=== PATIENT | male | born 1995 | race African-American/Black ===

== ENCOUNTER 2018-05-05 22:27 | Emergency (ER) | payer OTHER ==
[2018-05-06] MEDS ORDERED: PREDNISONE 20 MG TABLET PO ONE (00:50)
--- NOTE | 2018-05-06 00:58 | ER Document Report ---
ED General - General Chief Complaint: Skin Problem Stated Complaint: POSSIBLE RASH Time Seen by Provider: 05/06/18 00:35 Notes: 23-year-old male with history of psoriasis since 2014 presents to the emergency department for psoriasis outbreak. He states that he developed it while in the [place] in the and it had been controlled on Humira but he had not take his medications sometime and had a severe outbreak all over his body including his scalp. He complains of itching and crusting lesions, not weeping. He denies fever or any other systemic illness. He denies any underlying secondary infection on any of the lesions. TRAVEL OUTSIDE OF THE [place] IN LAST 30 DAYS: No Past Medical History - General Information source: Patient - Social History Smoking Status: Never Smoker Frequency of alcohol use: None Drug Abuse: None Family History: Reviewed & Not Pertinent Patient has suicidal ideation: No Patient has homicidal ideation: No Renal/ Medical History: Denies: Hx Peritoneal Dialysis Review of Systems - Review of Systems EENT: No symptoms reported Cardiovascular: No symptoms reported Respiratory: No symptoms reported Gastrointestinal: No symptoms reported Genitourinary: No symptoms reported Male Genitourinary: No symptoms reported Musculoskeletal: No symptoms reported Skin: See HPI Hematologic/Lymphatic: No symptoms reported Neurological/Psychological: No symptoms reported Physical Exam - Vital signs Vitals: Temp Pulse Resp BP Pulse Ox 98.5 F 62 12 129/75 H 97 05/05/18 22:27 05/05/18 22:27 05/05/18 22:27 05/05/18 22:27 05/05/18 22:27 - Notes Notes: Reviewed vital signs and nursing note as charted by RN. CONSTITUTIONAL: Well-appearing, well-nourished, acting appropriately for age HEAD: Normocephalic, atraumatic, no swelling EYES: PERRL, Conjunctivae clear, no drainage, EOMI, no scleral icterus ENT: External ears without lesions, External auditory canal is patent, Tairway patent, mucous membranes pink and moist EXT: Normal ROM in all joints, non-tender to palpation, no effusions, no edema SKIN: Normal color for age and race, warm, dry, good turgor, systemic psoriatic plaques crusting, no weeping, no evidence of underlying infection. NEURO: No facial asymmetry, moves all extremities equally, motor and sensory function intact Course - Re-evaluation Re-evalutation: 05/06/18 01:01 23-year-old male with psoriasis who ran out of his medications and has a psoriasis outbreak. There are systemic Psoriatec lesions over his whole body from head to toe that are dry and crusting. They are not weeping and there is no evidence of secondary infection. Patient states he was on Humira but ran out after being in the [place]. Plan is to give him 1 dose of prednisone now and a prednisone taper outpatient prescription with instructions to follow-up with dermatology. I explained to patient that this is merely a Band-Aid approach and it will require dermatology involvement to help manage his psoriasis in the emergency department is not equipped to manage the psoriasis. Patient agreed and understood. - Vital Signs Vital signs: Temp Pulse Resp BP Pulse Ox 98.5 F 62 12 129/75 H 97 05/05/18 22:27 05/05/18 22:27 05/05/18 22:27 05/05/18 22:27 05/05/18 22:27 Discharge - Discharge Clinical Impression: Psoriasis Condition: Stable Disposition: HOME, SELF-CARE Instructions: Psoriasis ([facility]) Additional Instructions: Psoriasis You have psoriasis. This is a common disease, but the cause is unknown. Psoriasis often runs in families. The skin blemishes are usually red with a thick, silvery scale. It is most commonly seen over the knees, elbows, and scalp. The nails may become thickened or pitted. Psoriasis is treated with cortisone cream. You can wrap the area with plastic wrap overnight to increase the effectiveness of the cream. Tar preparations may be used on non-hairy areas. Medicated shampoos are often prescribed. Management by a math interventionist is advised. Prescriptions: Prednisone [Deltasone 20 mg Tablet] 20 mg PO DAILY 21 Days #42 tablet Referrals: YUMI LIND MD [ACTIVE PROVISIONAL STAFF] - Follow up as needed
[2018-05-06 01:10] VITALS: BP 137/80
== END 2018-05-06 01:11 | disposition home or self-care (01) ==
LOC: ER 22:27
DX: L40.9 Psoriasis, unspecified (principal); Z79.899 Other long term (current) drug therapy
CPT/HCPCS: 99283; J7512

== ENCOUNTER 2018-06-02 17:59 | Emergency (ER) | payer OTHER ==
[2018-06-02 18:24] VITALS: BP 113/61
--- NOTE | 2018-06-02 19:22 | ER Document Report ---
ED Skin Rash/Insect Bite/Abscs - General Chief Complaint: Rash Stated Complaint: RASH Time Seen by Provider: 06/02/18 19:10 Primary Care Provider: YUMI LIND MD [ACTIVE PROVISIONAL STAFF] - Follow up as needed Mode of Arrival: Ambulatory Information source: Patient Notes: 23-year-old male presented to ED for complaint of increase in pain and itching to his psoriasis to both arms both legs abdomen back and chest. He states he is usually on Humira but is out of the medication is in process of getting an appointment with the dermatology. He states he went to his primary care doctor they told him it should not be more than a week or so before he gets gets his appointment. He has been seen in the past for the psoriasis and stated that he got steroids which helped him tremendously. He states that the pain is so bad now he cannot sleep from the psoriasis. Patient is alert oriented respirations regular and speaking in full sentences walks with a even steady gait. TRAVEL OUTSIDE OF THE [place] IN LAST 30 DAYS: No - HPI Patient complains to provider of: Skin rash/lesion Onset: Other - Chronic worse for the last several days Onset/Duration: Intermittent Quality of pain: Burning - Itching burning Severity: Moderate Pain Level: 3 Skin Character: Erythema, Patchy, Other - Plaque psoriasis generalized body Quality of rash: Itchy, Painful Exacerbated by: Other - Warmth stress Relieved by: Denies Similar symptoms previously: Yes Recently seen / treated by doctor: Yes - Related Data Allergies/Adverse Reactions: No Known Allergies Allergy (Verified 06/02/18 18:13) Past Medical History - General Information source: Patient - Social History Smoking Status: Never Smoker Frequency of alcohol use: None Drug Abuse: None Family History: Reviewed & Not Pertinent Patient has suicidal ideation: No Patient has homicidal ideation: No - Past Medical History Cardiac Medical History: Reports: None Pulmonary Medical History: Reports: None EENT Medical History: Reports: None Neurological Medical History: Reports: None Endocrine Medical History: Reports: None Renal/ Medical History: Reports: None Malignancy Medical History: Reports None GI Medical History: Reports: None Musculoskeletal Medical History: Reports None Skin Medical History: Reports Hx Psoriasis Psychiatric Medical History: Reports: None Traumatic Medical History: Reports: None Infectious Medical History: Reports: None Surgical Hx: Negative Past Surgical History: Reports: None - Immunizations Immunizations up to date: Yes Review of Systems - Review of Systems Constitutional: No symptoms reported EENT: No symptoms reported Cardiovascular: No symptoms reported Respiratory: No symptoms reported Gastrointestinal: No symptoms reported Genitourinary: No symptoms reported Male Genitourinary: No symptoms reported Musculoskeletal: No symptoms reported Skin: Rash - psoriasis to arms legs abdomen back chest neck states the burning and itching is keeping him awake. 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 He states he was been on Humira in the past that h elped but is out of it Hematologic/Lymphatic: No symptoms reported Neurological/Psychological: No symptoms reported Physical Exam - Vital signs Vitals: Temp Pulse Resp BP Pulse Ox 98.8 F 70 18 113/61 99 06/02/18 18:22 06/02/18 18:22 06/02/18 18:22 06/02/18 18:22 06/02/18 18:22 Interpretation: Normal - General General appearance: Appears well, Alert - HEENT Head: Normocephalic, Atraumatic Eyes: Normal Pupils: PERRL - Respiratory Respiratory status: No respiratory distress Chest status: Nontender Breath sounds: Normal Chest palpation: Normal - Cardiovascular Rhythm: Regular Heart sounds: Normal auscultation Murmur: No - Abdominal Inspection: Normal Distension: No distension Bowel sounds: Normal Tenderness: Nontender Organomegaly: No organomegaly - Back Back: Normal, Nontender - Extremities General upper extremity: Normal inspection, Nontender, Normal color, Normal ROM, Normal temperature General lower extremity: Normal inspection, Nontender, Normal color, Normal ROM, Normal temperature, Normal weight bearing. No: Deysi's sign - Neurological Neuro grossly intact: Yes Cognition: Normal Orientation: AAOx4 Fannie Coma Scale Eye Opening: Spontaneous [place] Coma Scale Verbal: Oriented [place]annie Coma Scale Motor: Obeys Commands [place] Coma Scale Total: 15 Speech: Normal Motor strength normal: LUE, RUE, LLE, RLE Sensory: Normal - Psychological Associated symptoms: Normal affect, Normal mood - Skin Skin Temperature: Warm Skin Moisture: Dry Skin Color: Normal Location of irregularity: Neck, Abdomen, Chest, Back, Extremities Character of irregularity: Patchy, Erythematous Irregularity with: Tenderness, Scaling, Crusting Course - Re-evaluation Re-evalutation: 06/03/18 01:56 Patient was treated with prednisone and then prescription for prednisone. Patient was instructed that he cannot continue to use steroids for his psoriasis or it will weaken his bone and increase other problems. Patient verbalized understanding states he has a referral in for dermatology to get back on his Humira. He states she has not had the medicine in some time and that is why the outbreak is so bad this time. - Vital Signs Vital signs: Temp Pulse Resp BP Pulse Ox 98.8 F 70 18 113/61 99 06/02/18 18:22 06/02/18 18:22 06/02/18 18:22 06/02/18 18:22 06/02/18 18:22 Discharge - Discharge Clinical Impression: Psoriasis Condition: Stable Disposition: HOME, SELF-CARE Additional Instructions: Psoriasis You have psoriasis. This is a common disease, but the cause is unknown. Psoriasis often runs in families. The skin blemishes are usually red with a thick, silvery scale. It is most commonly seen over the knees, elbows, and scalp. The nails may become thickened or pitted. Psoriasis is treated with cortisone cream. You can wrap the area with plastic wrap overnight to increase the effectiveness of the cream. Tar preparations may be used on non-hairy areas. Medicated shampoos are often prescribed. Management by a master certified rv technician is advised. Trying not to get overheated as this increases the symptoms. Hot showers can also make the psoriasis more itchy. Try Eucerin cream mixed with vitamin A E. By a tub of Eucerin cream at the [place] by a bottle of vitamin E E oil take a tongue blade or a knife and start the vitamin E oil into the Eucerin cream very well and then applied to the affected area this often helps with the itching and discomfort STEROID MEDICATION: You have been given a medicine of the cortisone/steroid class. This medication is used to control inflammation or allergy. It is usually only given for a short period of time, until the acute process subsides. There are usually no side effects from short-term use of cortisone-like medications. Some persons feel an increased sense of well-being and are not sleepy at bedtime. Long-term use of cortisone medications is best avoided, unless required for a severe condition. If your condition does not remit, or relapses after the course of corticosteroid medication, you should consult your physician. FOLLOW-UP CARE: If you have been referred to a physician for follow-up care, call the physicians office for an appointment as you were instructed or within the next two days. If you experience worsening or a significant change in your symptoms, notify the physician immediately or return to the Emergency Department at any time for re-evaluation. Prescriptions: Prednisone [Sterapred Ds] 1 pkg PO ASDIR PRN 12 Days [email or web address] PRN Reason: Forms: Return to Work Referrals: YUMI LIND MD [ACTIVE PROVISIONAL STAFF] - Follow up as needed
[2018-06-02] MEDS ORDERED: PREDNISONE 20 MG TABLET PO ONE (19:24)
== END 2018-06-02 19:58 | disposition home or self-care (01) ==
LOC: ER 17:59
DX: L40.9 Psoriasis, unspecified (principal)
CPT/HCPCS: 99282; J7512

== ENCOUNTER 2018-11-22 23:33 | Emergency (ER) | payer OTHER ==
--- NOTE | 2018-11-22 23:45 | ER Document Report ---
ED General - General Chief Complaint: Toe Injury Stated Complaint: TOE PAIN Time Seen by Provider: 11/22/18 23:45 Primary Care Provider: AMBER HUGO DPM [ACTIVE STAFF] - Follow up in 1 week (FOR FOOT FOLLOW UP) TRAVEL OUTSIDE OF THE [place] IN LAST 30 DAYS: No - HPI Notes: 23-year-old male to the emergency department with complaints of right great toe pain around the nail with swelling and redness for 1 week. He states that he noticed the pain started after his feet got exceptionally wet on a rainy day. States that he was trying to see if the pain would resolve but it has gotten worse. He denies any history of ingrown toenails. He denies any fevers, chills, chest pain, shortness of breath, abdominal pain, nausea vomiting diarrhea, leg pain, falls, trauma to the foot. - Related Data Allergies/Adverse Reactions: No Known Allergies Allergy (Verified 06/02/18 18:13) Past Medical History - General Information source: Patient - Social History Smoking Status: Smoker,Current Status Unk Frequency of alcohol use: Occasional Drug Abuse: None Family History: Reviewed & Not Pertinent Renal/ Medical History: Denies: Hx Peritoneal Dialysis Skin Medical History: Reports Hx Psoriasis - Immunizations Immunizations up to date: Yes Review of Systems - Review of Systems Constitutional: denies: Chills, Fever EENT: No symptoms reported Cardiovascular: denies: Chest pain, Dyspnea, Syncope, Dizziness, Lightheaded Respiratory: denies: Cough, Short of breath Gastrointestinal: denies: Abdominal pain, Diarrhea, Nausea, Vomiting Genitourinary: No symptoms reported Musculoskeletal: Joint pain - Toe pain to the right great toe Skin: Change in color - Redness and swelling to the right great toenail -: Yes All other systems reviewed and negative Physical Exam - Vital signs Vitals: Temp Pulse BP Pulse Ox 98.3 F 72 120/70 97 11/22/18 23:37 11/22/18 23:37 11/22/18 23:37 11/22/18 23:37 Interpretation: Normal - General General appearance: Appears well, Alert - HEENT Head: Normocephalic, Atraumatic Eyes: Normal Pupils: PERRL - Respiratory Respiratory status: No respiratory distress Chest status: Nontender Breath sounds: Normal Chest palpation: Normal - Cardiovascular Rhythm: Regular Heart sounds: Normal auscultation Murmur: No - Neurological Neuro grossly intact: Yes Cognition: Normal Orientation: AAOx4 Fannie Coma Scale Eye Opening: Spontaneous [place] Coma Scale Verbal: Oriented [place] Coma Scale Motor: Obeys Commands [place] Coma Scale Total: 15 Speech: Normal Motor strength normal: LUE, RUE, LLE, RLE Sensory: Normal - Psychological Associated symptoms: Normal affect, Normal mood - Skin Skin Temperature: Warm Skin Moisture: Dry Skin Color: Normal Skin irregularity: other - There is an ingrown toenail to the right side of the right great toe. Around the nailbed there is edema and erythema but no evidence of purulence. There is no streaking erythema of the toe onto the dorsum of the foot. Patient can wiggle all toes without difficulty and has capillary refill that is less than 2 seconds. He has full range of motion in dorsi flexion and plantar flexion against resistance with 5 out of 5 strength. Course - Re-evaluation Re-evalutation: 11/23/18 01:25 Impression: Right great ingrown toenail. Was able to remove the toenail without difficulty. We will go ahead and cover with Keflex. Have educated on how to cut his toenails. Encouraged to return if his symptoms worsen at all to include fevers, worsening pain, worsening redness, streaking redness, any other concerns. Patient agrees with the plan - Vital Signs Vital signs: Temp Pulse Resp BP Pulse Ox 98.4 F 64 18 124/77 97 11/23/18 00:48 11/23/18 00:48 11/23/18 00:48 11/23/18 00:48 11/23/18 00:48 Procedures - Nail Trephanation/Removal Right Foot Great toe Time completed: : Nail Trepanation/Removal Location: Removal of ingrown toenail to right great toe Betadine prep applied: Yes Method of Drainage: Other - Forceps and scissors used to remove ingrowing toenail to the right side of the nailbed Notes: 11/23/18 01:26 A digital block was performed with 1% lidocaine. 6 cc of 1% lidocaine was inserted into the toe to achieve anesthesia. Anesthesia was achieved and the ingrown toenail was easily removed from the nailbed in which it was growing and cut off. A small piece of gauze was placed under the remaining nail to lift it and prevent further ingrowing. The cuticles of the nailbed were trimmed. Patient tolerated procedure well. Discharge - Discharge Clinical Impression: Ingrown nail of great toe of right foot Condition: Stable Disposition: HOME, SELF-CARE Instructions: Ingrown Nail ([facility]) Additional Instructions: TAKE ALL MEDICINES PRESCRIBED. RETURN IF WORSENING PAIN, WORSENING REDNESS OF TOE, REDNESS SPREADING UP THE FOOT, FEVERS, OR ANY OTHER CONCERNS. SOAK THE FOOT NIGHTLY IN EPSOM SALT, PUT GAUZE UNDER THE NAIL TO HELP PREVENT INGROWING. DO NOT CUT NAILS TOO SHORT. Prescriptions: Cephalexin Monohydrate [Keflex 500 mg Capsule] 500 mg PO Q6H 7 Days #28 capsule Naproxen [Naprosyn 375 Mg Tablet] 375 mg PO BID #20 tablet Referrals: AMBER HUGO DPM [ACTIVE STAFF] - Follow up in 1 week (FOR FOOT FOLLOW UP)
[2018-11-22] MEDS ORDERED: LIDOCAINE 1% INJ-PF (10 MG/ML) 30 ML SDV INJ ONE (23:56)
[2018-11-23 00:51] VITALS: BP 124/77
== END 2018-11-23 00:59 | disposition home or self-care (01) ==
LOC: ER 23:33
DX: L60.0 Ingrowing nail (principal)
CPT/HCPCS: 99282

== ENCOUNTER 2019-05-02 19:06 | Emergency (ER) | payer OTHER ==
[2019-05-02 20:03] LABS: ABSOLUTE BASOPHILS # (AUTO) 0.1 10^3/uL (0.0-0.2); ABSOLUTE EOSINOPHILS # (AUTO) 0.2 10^3/uL (0.0-0.6); ABSOLUTE LYMPHOCYTES (AUTO) 2.5 10^3/uL (0.5-4.7); ABSOLUTE MONOCYTES (AUTO) 0.5 10^3/uL (0.1-1.4); BASOPHILS % (AUTO) 0.6 % (0-2); EOSINOPHILS % (AUTO) 2.4 % (0-6); HEMATOCRIT 41.8 % (37.9-51.0); HEMOGLOBIN 14.1 g/dL (13.5-17.0); LYMPHOCYTES % (AUTO) 26.9 % (13-45); MEAN CORPUSCULAR HEMOGLOBIN 27.5 pg (27.0-33.4); MEAN CORPUSCULAR HGB CONC 33.7 g/dL (32.0-36.0); MEAN CORPUSCULAR VOLUME 82 fl (80-97); MONOCYTES % (AUTO) 5.4 % (3-13); PLATELET COUNT 212 10^3/uL (150-450); RED BLOOD COUNT 5.11 10^6/uL (4.35-5.55); RED CELL DISTRIBUTION WIDTH 14.3 % (11.5-14.0); SEGMENTED NEUTROPHILS % (AUTO) 64.7 % (42-78); TOTAL CELLS COUNTED % (AUTO) 100 %; WHITE BLOOD COUNT 9.3 10^3/uL (4.0-10.5)
[2019-05-02 20:23] LABS: ALBUMIN 4.6 g/dL (3.5-5.0); ALKALINE PHOSPHATASE 78 U/L (38-126); ANION GAP 10 (5-19); ASPARTATE AMINO TRANSFERASE 24 U/L (17-59); BILIRUBIN,DIRECT 0.2 mg/dL (0.0-0.4); BILIRUBIN,TOTAL 0.4 mg/dL (0.2-1.3); BLOOD UREA NITROGEN 12 mg/dL (7-20); CALCIUM 9.8 mg/dL (8.4-10.2); CARBON DIOXIDE 27 mmol/L (22-30); CHLORIDE 103 mmol/L (98-107); GLUCOSE 90 mg/dL (75-110); POTASSIUM 3.9 mmol/L (3.6-5.0); TOTAL PROTEIN 7.5 g/dL (6.3-8.2)
[2019-05-02 20:24] LABS: ACETAMINOPHEN < 10 ug/mL (10-30); ALCOHOL < 10 mg/dL (NONE DETECTED); SALICYLATE < 1.0 mg/dL (2.0-20.0)
[2019-05-02 20:57] LABS: URINE BARBITURATES SCREEN NEGATIVE; URINE COCAINE SCREEN NEGATIVE; URINE MARIJUANA (THC) SCREEN NEGATIVE; URINE PHENCYCLIDINE SCREEN NEGATIVE
[2019-05-02 21:07] LABS: URINE BENZODIAZEPINES SCREEN NEGATIVE
[2019-05-02 21:08] LABS: APPEARANCE,URINE CLEAR; BILIRUBIN,URINE NEGATIVE (NEGATIVE); COLOR,URINE YELLOW; GLUCOSE, URINE NEGATIVE (NEGATIVE); KETONES,URINE 80 mg/dL (NEGATIVE); LEUKOCYTE ESTERASE,URINE SMALL (NEGATIVE); NITRITE,URINE NEGATIVE (NEGATIVE); PROTEIN,URINE NEGATIVE (NEGATIVE); URINE AMPHETAMINES SCREEN NEGATIVE; URINE METHADONE SCREEN NEGATIVE; URINE SPECIFIC GRAVITY 1.025; UROBILINOGEN,URINE NEGATIVE mg/dL (<2.0)
--- NOTE | 2019-05-03 06:31 | ER Document Report ---
ED General - General Chief Complaint: Psych Problem Stated Complaint: PSYCH Time Seen by Provider: 05/03/19 01:52 Primary Care Provider: TRUMAN LATIF MD [Primary Care Provider] - Follow up as needed TRAVEL OUTSIDE OF THE [place] IN LAST 30 DAYS: No - HPI Notes: Mr. Bustos is a 24-year-old male presenting with a chief complaint of recurrent depression. This gentleman was treated as an outpatient in the past with an unknown antidepressant about 5 years ago. He apparently responded well to the medication at that time but eventually stopped taking this and has not followed up with any mental health professional. He is currently and has 2 small children less than 2 years of age. He feels stressed about the condition of his marriage and about some matters at his work. He is having problems with insomnia and difficulty concentrating and impairment of his ability to carry out his day-to-day responsibilities. He is come in requesting mental health assistance. He denies hallucinations auditory or visual. He denies suicidal/homicidal ideation. He denies any abuse of drugs or alcohol. - Related Data Allergies/Adverse Reactions: No Known Allergies Allergy (Verified 06/02/18 18:13) Home Medications: Humira for psoriasis Past Medical History - Social History Smoking Status: Unknown if Ever Smoked Chew tobacco use (# tins/day): No Frequency of alcohol use: Occasional Drug Abuse: Marijuana Family History: Reviewed & Not Pertinent Patient has suicidal ideation: No Patient has homicidal ideation: No Renal/ Medical History: Denies: Hx Peritoneal Dialysis Skin Medical History: Reports Hx Psoriasis - Immunizations Immunizations up to date: Yes Review of Systems - Review of Systems Notes: Constitutional: Negative for fever. HENT: Negative for sore throat. Eyes: Negative for visual changes. Cardiovascular: Negative for chest pain. Respiratory: Negative for shortness of breath. Gastrointestinal: Negative for abdominal pain, vomiting or diarrhea. Genitourinary: Negative for dysuria. Musculoskeletal: Negative for back pain. Skin: Negative for rash. Neurological: Negative for headaches, weakness or numbness. 10 point ROS negative except as marked above and in HPI. Physical Exam - Vital signs Vitals: Temp Pulse Resp BP Pulse Ox 98.5 F 70 18 159/91 H 99 05/02/19 19:13 05/02/19 19:13 05/02/19 19:13 05/02/19 19:13 05/02/19 19:13 - Notes Notes: GENERAL: Well-developed well-nourished appearing in no acute distress. SKIN: Good turgor no rashes. HEAD: Normocephalic atraumatic. EYES: PERRLA. EOMI. Conjunctivae and sclerae clear. EARS: CANALS AND TMS CLEAR. NOSE: CLEAR. MOUTH: Moist mucosa. Good dentition. No stridor or edema. No drooling. NECK: Supple. No masses or thyromegaly. No adenopathy. Carotids 2+ without bruits. No JVD. BACK: Symmetrical without tenderness. CHEST: Respirations unlabored. Breath sounds clear and symmetrical. HEART: Regular rhythm. No murmur gallop or rub. ABDOMEN: Soft nontender without masses, organomegaly or rebound. Bowel sounds normally active. No bruits. GENITALIA: Deferred. EXTREMITIES: No edema. No calf tenderness. Cap refill less than 1.5 seconds. Dorsalis pedis and posterior tibial pulses 3+ and symmetrical. NEUROLOGICAL: GCS 15. Alert and oriented x3. Normal gait. Fluent speech. Cranial nerves II through XII intact. Sensorimotor and cerebellar normal. Normal tone. PSYCHIATRIC: Flat affect. Course - Re-evaluation Re-evalutation: 05/03/19 06:29 CBC comprehensive metabolic profile urinalysis urine drug screen and EKG were all unremarkable and blood alcohol was less than 10. Patient is medically cleared for psychiatric evaluation at this time. - Vital Signs Vital signs: Temp Pulse Resp BP Pulse Ox 99.3 F 71 16 149/91 H 100 05/02/19 19:36 05/02/19 19:36 05/02/19 19:36 05/02/19 19:36 05/02/19 19:36 - Laboratory Result Diagrams: 05/02/19 19:45 05/02/19 19:45 Laboratory results interpreted by me: 05/02/19 05/02/19 05/02/19 19:45 19:45 20:20 RDW 14.3 H Urine Ketones 80 H Urine Blood SMALL H Ur Leukocyte Esterase SMALL H Salicylates < 1.0 L Acetaminophen < 10 L Discharge - Discharge Clinical Impression: Major depressive disorder, recurrent severe without psychotic features Disposition: PSYCH HOSP/UNIT Referrals: TRUMAN LATIF MD [Primary Care Provider] - Follow up as needed
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
[2019-05-03] MEDS ORDERED: OLANZAPINE 2.5 MG TABLET PO ONE (11:02)
[2019-05-03 11:09] VITALS: BP 124/76
--- NOTE | 2019-05-03 20:04 | EKG REPORT ---
SEVERITY:- NORMAL ECG - SINUS RHYTHM : Confirmed by: Roni Araujo MD 03-May-2019 20:03:39
== END 2019-05-03 11:14 | disposition home or self-care (01) ==
LOC: ER 19:06
DX: F33.2 Major depressive disorder, recurrent severe without psychotic features (principal); F12.10 Cannabis abuse, uncomplicated; L40.9 Psoriasis, unspecified; Z79.899 Other long term (current) drug therapy
CPT/HCPCS: 93005; 99285; 36415; 80307 ×4; 85025; 80053; 81001; 93010; J3490

== ENCOUNTER 2019-09-27 05:38 | Emergency (ER) | payer OTHER ==
--- NOTE | 2019-09-27 09:21 | ER Document Report ---
HPI - HPI Patient complains to provider of: Finger laceration Onset: This morning Onset/Duration: Persistent Quality of pain: Achy Pain Level: 3 Context: Patient was trying to pull on a outdoor candle and got cut on a piece of metal. Patient with laceration to the distal tip of the right second finger, no active bleeding. Associated Symptoms: Other - Finger laceration Exacerbated by: Denies Relieved by: Denies Similar symptoms previously: No Recently seen / treated by doctor: No - ROS ROS below otherwise negative: Yes Systems Reviewed and Negative: Yes All other systems reviewed and negative - NEURO Neurology: DENIES: Weakness - CARDIOVASCULAR Cardiovascular: DENIES: Chest pain - RESPIRATORY Respiratory: DENIES: Trouble Breathing, Coughing - MUSCULOSKELETAL Musculoskeletal: REPORTS: Extremity pain - DERM Skin Color: Normal Skin Problems: Laceration Past Medical History - General Information source: Patient - Social History Smoking Status: Current Every Day Smoker Frequency of alcohol use: None Drug Abuse: None Occupation: None Family History: Reviewed & Not Pertinent Patient has homicidal ideation: No Renal/ Medical History: Denies: Hx Peritoneal Dialysis Skin Medical History: Reports Hx Psoriasis Surgical Hx: Negative - Immunizations Immunizations up to date: Yes Vertical Provider Document - CONSTITUTIONAL Agree With Documented VS: Yes Exam Limitations: No Limitations General Appearance: WD/WN, No Apparent Distress - INFECTION CONTROL TRAVEL OUTSIDE OF THE [place] IN LAST 30 DAYS: No - HEENT HEENT: Atraumatic, Normocephalic - NECK Neck: Normal Inspection - RESPIRATORY Respiratory: No Respiratory Distress - CARDIOVASCULAR Pulses: Normal: Radial - MUSCULOSKELETAL/EXTREMETIES Musculoskeletal/Extremeties: MAEW, FROM - NEURO Level of Consciousness: Awake, Alert, Appropriate Motor/Sensory: No Motor Deficit, No Sensory Deficit - DERM Integumentary: Warm, Dry, Laceration - 1 cm laceration to distal tip of right second finger, wound edges approximated, no active bleeding Course - Vital Signs Vital signs: Temp Pulse Resp BP Pulse Ox 98.3 F 78 16 132/74 H 98 09/27/19 05:45 09/27/19 05:43 09/27/19 05:43 09/27/19 05:43 09/27/19 05:43 Procedures - Laceration/Wound Repair Right Finger 2nd digit Wound length (cm): 1 Wound's Depth, Shape: Linear Laceration pre-procedure: Shur-Clens applied Wound explored: Clean Wound Repaired With: Steri-strips, Dermabond Post-procedure wound care: Sterile dressing applied Post-procedure NV exam normal: Yes Complications: No Hands front picture: 1 - lac Discharge - Discharge Clinical Impression: Finger laceration Qualifiers: Encounter type: initial encounter Finger: index finger Damage to nail status: without damage Foreign body presence: without foreign body Laterality: right Qualified Code(s): S61.210A - Laceration without foreign body of right index finger without damage to nail, initial encounter Condition: Stable Disposition: HOME, SELF-CARE Instructions: Skin Adhesive Closure ([facility]), Care of Steri-Strip Closure ([facility]) Additional Instructions: Return immediately for any new or worsening symptoms Followup with your primary care provider, call tomorrow to make a followup appointment Referrals: TRUMAN LATIF MD [Primary Care Provider] - Follow up as needed
[2019-09-27 10:52] VITALS: BP 121/71
== END 2019-09-27 10:50 | disposition home or self-care (01) ==
LOC: ER 05:38
DX: S61.210A Laceration without foreign body of right index finger without damage to nail, initial encounter (principal); W26.8XXA Contact with other sharp object(s), not elsewhere classified, initial encounter; F17.200 Nicotine dependence, unspecified, uncomplicated
CPT/HCPCS: 99282